=== PATIENT | male | born 1960 | race Caucasian/White ===

== ENCOUNTER 2017-03-24 11:43 | Emergency (ER) | payer SELFPAY ==
[~2017-03-24] VITALS: Ht 180.3 cm; Wt 105.7 kg
[2017-03-24] MEDS ORDERED: NS IV 1000 ML 1,000 ML IV ONE ×2 (12:25→13:48)
[2017-03-24] MEDS ORDERED: ONDANSETRON 4 MG/2 ML (SDV) Z0FRAN IVP ONE ×2 (12:30→14:00)
[2017-03-24 12:34] LABS: BASOPHILS % (AUTO) 0 % (0-10); EOSINOPHILS # (AUTO) 0.3 10^3/uL (0.0-0.3); EOSINOPHILS % (AUTO) 3 % (0-10); HEMATOCRIT 33 % (40-54); LYMPHOCYTES # (AUTO) 1.2 X 10^3 (1.0-4.0); LYMPHOCYTES % (AUTO) 12 % (12-44); MEAN CORPUSCULAR HEMOGLOBIN 27 PG (25-34); MEAN CORPUSCULAR HGB CONC 34 G/DL (32-36); MEAN CORPUSCULAR VOLUME 80 FL (80-99); MEAN PLATELET VOLUME 8.3 FL (7.4-10.4); MONOCYTES # (AUTO) 0.8 X 10^3 (0.0-1.0); MONOCYTES % (AUTO) 7 % (0-12); NEUTROPHILS # (AUTO) 7.9 X 10^3 (1.8-7.8); NEUTROPHILS % (AUTO) 78 % (42-75); PLATELET COUNT 558 10^3/uL (130-400); RED BLOOD COUNT 4.06 10^6/uL (4.35-5.85); RED CELL DISTRIBUTION WIDTH 13.1 % (10.0-14.5); WHITE BLOOD COUNT 10.2 10^3/uL (4.3-11.0)
[2017-03-24 12:45] LABS: INR 1.1 (0.8-1.4); PROTHROMBIN TIME PATIENT 14.3 SEC (12.2-14.7)
[2017-03-24 12:53] LABS: ALANINE AMINOTRANSFERASE 18 U/L (0-55); ALBUMIN 3.6 GM/DL (3.2-4.5); ALKALINE PHOSPHATASE 67 U/L (40-136); BILIRUBIN,TOTAL 0.5 MG/DL (0.1-1.0); BUN/CREATININE RATIO 14; CALCIUM 9.2 MG/DL (8.5-10.1); CARBON DIOXIDE 22 MMOL/L (21-32); CHLORIDE 91 MMOL/L (98-107); CREATININE SERUM 1.04 MG/DL (0.60-1.30); GFR ESTIMATED > 60; GLUCOSE 161 MG/DL (70-105); LIPASE 8 U/L (8-78); MAGNESIUM 1.7 MG/DL (1.8-2.4); POTASSIUM 4.3 MMOL/L (3.6-5.0); SODIUM 132 MMOL/L (135-145); TOTAL PROTEIN 7.5 GM/DL (6.4-8.2)
[2017-03-24 12:57] LABS: BILIRUBIN,URINE NEGATIVE (NEGATIVE); CLARITY,URINE CLEAR; COLOR,URINE YELLOW; GLUCOSE, URINE (UA) 4+ (NEGATIVE); KETONES,URINE 4+ (NEGATIVE); LEUKOCYTE ESTERASE ,URINE NEGATIVE (NEGATIVE); NITRITE,URINE NEGATIVE (NEGATIVE); PH,URINE 5 (5-9); PROTEIN,URINE NEGATIVE (NEGATIVE); UROBILINOGEN,URINE NORMAL (NORMAL)
[2017-03-24 13:05] LABS: BACTERIA,URINE NEGATIVE /HPF; SQUAMOUS EPITHELIAL CELL,UR RARE /HPF
[2017-03-24 13:15] LABS: TSH (THYROID ANALYZER) 6.96 UIU/ML (0.35-4.94)
[2017-03-24] MEDS ORDERED: morphine INJ 10 MG/ML 1ML (SYR OR VIAL) IVP STA (13:35)
--- NOTE | 2017-03-24 13:36 | ED GI ---
General Chief Complaint: Abdominal/GI Problems Stated Complaint: VOMITING AFTER OPEN HEART SURGERY Nursing Triage Note: C/O NAUSEA SINCE YESTERDAY W/VOMITTING THIS AM. HAD CABG @ WEEK AGO. STATED CONCERN WAS FOR DEHYDRATION. STATES GENERALIZED PAIN. NO C/O CP. 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 PT. ALSO HAS CONCERNED TO SURGERY SITE UNDER L-KNEE. Sepsis Screen: No Definite Risk Source of Information: Patient, Spouse Exam Limitations: No Limitations History of Present Illness Date Seen by Provider: Mar 24, 2017 Allergies and Home Medications Allergies Coded Allergies: No Known Drug Allergies (Unverified , 03/24/17) Past Hnqetpf-Wiciyq-Bourqe Hx Patient Social History Alcohol Use: Denies Use Recreational Drug Use: No Smoking Status: Never a Smoker Recent Foreign Travel: No Contact w/Someone Who Travel: No Recent Infectious Disease Expo: No Recent Hopitalizations: Yes (VIA [facility] FOR CABG 03.08.17) Physical Abuse: No Sexual Abuse: No Immunizations Up To Date Date of Influenza Vaccine: Mar 08, 2017 Surgeries History of Surgeries: Yes (97' CRANIOTOMY, 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)) Respiratory History of Respiratory Disorde: No Cardiovascular History of Cardiac Disorders: Yes (CABG 02/2017) Cardiac Disorders: Angina Neurological Neurological Disorders: Headaches /Migraines Genitourinary History of Genitourinary Disor: No Gastrointestinal History of Gastrointestinal Di: Yes (TAKES OMEPRAZOLE PRN) Endocrine History of Endocrine Disorders: Yes Endocrine Disorders: Diabetes, Non-Insulin dep HEENT History of HEENT Disorders: Yes (FROM CRANIOTY, 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) Psychosocial History of Psychiatric Problem: No Suicide Risk Score: 0 Blood Transfusions History of Blood Disorders: No Physical Exam Vital Signs VS - Last 72 Hours, by Label 03/24/17 12:27 Temp 95.6 Pulse 75 Resp 18 B/P (MAP) 131/81 (98) Pulse Ox 95 O2 Delivery Room Air Capillary Refill : Less Than 3 Seconds Progress/Results/Core Measures Results/Orders Lab Results Laboratory Tests Test 03/24/17 12:27 03/24/17 12:42 Range/Units White Blood Count 10.2 4.3-11.0 10^3/uL Red Blood Count 4.06 L 4.35-5.85 10^6/uL Hemoglobin 11.0 L 13.3-17.7 G/DL Hematocrit 33 L 40-54 % Mean Corpuscular Volume 80 80-99 FL Mean Corpuscular Hemoglobin 27 25-34 PG Mean Corpuscular Hemoglobin Concent 34 32-36 G/DL Red Cell Distribution Width 13.1 10.0-14.5 % Platelet Count 558 H 130-400 10^3/uL Mean Platelet Volume 8.3 7.4-10.4 FL Neutrophils (%) (Auto) 78 H 42-75 % Lymphocytes (%) (Auto) 12 12-44 % Monocytes (%) (Auto) 7 0-12 % Eosinophils (%) (Auto) 3 0-10 % Basophils (%) (Auto) 0 0-10 % Neutrophils # (Auto) 7.9 H 1.8-7.8 X 10^3 Lymphocytes # (Auto) 1.2 1.0-4.0 X 10^3 Monocytes # (Auto) 0.8 0.0-1.0 X 10^3 Eosinophils # (Auto) 0.3 0.0-0.3 10^3/uL Basophils # (Auto) 0.0 0.0-0.1 10^3/uL Prothrombin Time 14.3 12.2-14.7 SEC INR Comment 1.1 0.8-1.4 Activated Partial Thromboplast Time 33 24-35 SEC Sodium Level 132 L 135-145 MMOL/L Potassium Level 4.3 3.6-5.0 MMOL/L Chloride Level 91 L 98-107 MMOL/L Carbon Dioxide Level 22 21-32 MMOL/L Anion Gap 19 H 5-14 MMOL/L Blood Urea Nitrogen 15 7-18 MG/DL Creatinine 1.04 0.60-1.30 MG/DL Estimat Glomerular Filtration Rate > 60 BUN/Creatinine Ratio 14 Glucose Level 161 H 70-105 MG/DL Calcium Level 9.2 8.5-10.1 MG/DL Magnesium Level 1.7 L 1.8-2.4 MG/DL Total Bilirubin 0.5 0.1-1.0 MG/DL Aspartate Amino Transf (AST/SGOT) 19 5-34 U/L Alanine Aminotransferase (ALT/SGPT) 18 0-55 U/L Alkaline Phosphatase 67 40-136 U/L Troponin I < 0.30 <0.30 NG/ML C-Reactive Protein High Sensitivity 9.24 H 0.00-0.50 MG/DL Total Protein 7.5 6.4-8.2 GM/DL Albumin 3.6 3.2-4.5 GM/DL Lipase 8 8-78 U/L Free Thyroxine 1.01 0.70-1.48 NG/DL TSH [place] Testing 6.96 H 0.35-4.94 UIU/ML Urine Color YELLOW Urine Clarity CLEAR Urine pH 5 5-9 Urine Specific Hatch 1.010 L 1.016-1.022 Urine Protein NEGATIVE NEGATIVE Urine Glucose (UA) 4+ H NEGATIVE Urine Ketones 4+ H NEGATIVE Urine Nitrite NEGATIVE NEGATIVE Urine Bilirubin NEGATIVE NEGATIVE Urine Urobilinogen NORMAL NORMAL MG/DL Urine Leukocyte Esterase NEGATIVE NEGATIVE Urine RBC (Auto) NEGATIVE NEGATIVE Urine RBC NONE /HPF Urine WBC NONE /HPF Urine Squamous Epithelial Cells RARE /HPF Urine Crystals NONE /LPF Urine Bacteria NEGATIVE /HPF Urine Casts NONE /LPF Urine Mucus NEGATIVE /LPF Urine Culture Indicated NO Micro Results Microbiology 03/24/17 Influenza Types A,B Antigen ([facility]) - Final, Complete My Orders Orders - JAXON TAVERAS Saline Lock/Iv-Start (03/24/17 12:20) Ekg Tracing (03/24/17 12:20) Monitor-Rhythm Ecg Trace Only (03/24/17 12:20) Cbc With Automated Diff (03/24/17 12:20) Comprehensive Metabolic Panel (03/24/17 12:20) Hs C Reactive Protein (03/24/17 12:20) Lipase (03/24/17 12:20) Magnesium (03/24/17 12:20) Protime With Inr (03/24/17 12:20) Partial Thromboplastin Time (03/24/17 12:20) Thyroid Analyzer (03/24/17 12:20) Troponin I (03/24/17 12:20) Ua Culture If Indicated (03/24/17 12:20) Chest Pa/Lat (2 View) (03/24/17 12:20) Ondansetron Injection (Zofran Injectio (03/24/17 12:30) Ns Iv 1000 Ml (Sodium Chloride 0.9%) (03/24/17 12:25) Influenza A And B Antigens (03/24/17 13:11) Free T4 (Free Thyroxine) (03/24/17 12:27) Morphine Injection (Morphine Injection (03/24/17 13:35) Ondansetron Injection (Zofran Injectio (03/24/17 14:00) Ns Iv 1000 Ml (Sodium Chloride 0.9%) (03/24/17 13:48) Medications Given in ED Current Medications Medications Dose Ordered Sig/Kristen Route Start Time Stop Time Status Last Admin Dose Admin Ondansetron HCl 4 mg ONCE ONCE IVP 03/24/17 14:00 03/24/17 14:01 DC 03/24/17 13:50 4 MG Ondansetron HCl 8 mg ONCE ONCE IVP 03/24/17 12:30 03/24/17 12:31 DC 03/24/17 12:43 8 MG Sodium Chloride 1,000 ml @ 0 mls/hr Q0M ONCE IV 03/24/17 12:25 03/24/17 12:27 DC 03/24/17 12:43 0 MLS/HR Sodium Chloride 1,000 ml @ 0 mls/hr Q0M ONCE IV 03/24/17 13:48 03/24/17 13:50 DC 03/24/17 13:50 1,000 MLS/HR Vital Signs/I&O Vital Sign - Last 12Hours 03/24/17 12:27 Temp 95.6 Pulse 75 Resp 18 B/P (MAP) 131/81 (98) Pulse Ox 95 O2 Delivery Room Air Blood Pressure Mean: 98 Departure Impression Impression: Primary Impression: Nausea and vomiting Qualified Codes: R11.2 - Nausea with vomiting, unspecified Additional Impressions: Volume depletion Status post coronary artery bypass graft Disposition: HOME, SELF-CARE Condition: Improved Departure-Patient Inst. Decision time for Depature: 15:06 Referrals: NO,LOCAL PHYSICIAN (PCP/Family) Primary Care Physician Patient Instructions: Coronary Artery Bypass Grafting (DC), Viral Gastroenteritis, Adult (DC) Add. Discharge Instructions: All discharge instructions reviewed with patient and/or family. Voiced understanding. Medications as instructed. Drink plenty of fluids. Continue medications, diet, and instructions per your cardiothoracic surgeon. Follow-up with your surgeon next week for recheck, call for appointment time Monday. Follow-up with her family practitioner for recheck as an outpatient. Return to the emergency department immediately for worsened vomiting, pain, fever, shortness of air, chest pain, vomiting blood, redness at the incision sites, drainage from the incision sites, difficulty with urination, abdominal pain, dizziness, headache, changes in behavior, or any other concerns. Scripts Prochlorperazine Maleate (Compazine) 25 Mg Supp.rect 25 MG RC Q6H Y for NAUSEA/VOMITING-2ND LINE, #10 SUPP.RECT 0 Refills Prov: JAXON TAVERAS 03/24/17 Ondansetron (Ondansetron Odt) 8 Mg Tab.rapdis 8 MG PO Q6H Y for NAUSEA/VOMITING-1ST LINE, #10 TAB 0 Refills Prov: JAXON TAVERAS 03/24/17 Work/School Note: Local [employer] Listing JAXON TAVERAS Mar 24, 2017 13:36
[2017-03-24 13:47] LABS: FREE T4 (FREE THYROXINE) 1.01 NG/DL (0.70-1.48)
--- NOTE | 2017-03-24 14:05 | Diagnostic Imaging Report ---
Indication: Vomiting. Previous open heart surgery. Comparison: 03/08/2017. Procedure: PA and lateral chest Findings: Median sternotomy changes now present. Heart is mildly enlarged. There is no pulmonary edema. The lungs are well-aerated. There are no infiltrates. No pneumothorax or pleural effusion. Impression: Postoperative changes with no acute abnormalities otherwise demonstrated. Dictated by: Dictated on workstation # [id number]
[2017-03-24] MEDS ORDERED: PROC25SU27 RC (15:08)
[2017-03-24] MEDS ORDERED: ONDA8TAB13 PO (15:08)
[2017-03-24 15:41] VITALS: BP 122/72
--- OUTSIDE RECORDS SUMMARY | 2017-03-26 08:18 | XMS REPORT | Continuity of Care Document ---
Author Author [facility] Organization [facility] Address Unknown Phone Unavailable Allergies Active Description Code Type Severity Reaction Onset Reported/Identified Relationship to Patient Clinical Status Yes NO KNOWN ALLERGIES [id number] DRUG N/A N/A Medications There is no data. Problems Date Dx Coded Attending Type Code Diagnosis Diagnosed By 03/08/2017 MISAEL ROCK V2 804054 Chest Pain 03/08/2017 MISAEL ROCK V2 145206 Chest Pain 03/08/2017 MISAEL ROCK V2 [id number] Chest Pain 03/08/2017 MISAEL ROCK V1 I21.4 Non-ST elevation (NSTEMI) myocardial infarction ([facility]) 03/08/2017 MISAEL ROCK V1 I21.4 Non-ST elevation (NSTEMI) myocardial infarction ([facility]) 03/08/2017 MISAEL ROCK V1 I21.4 Non-ST elevation (NSTEMI) myocardial infarction ([facility]) Procedures There is no data. Results Test Result Range CBC WITH DIFFERENTIAL REFLEX MANUAL DIFF - 03/08/17 11:02 Hemoglobin 14.5 g/dL 13.9-17.4 Hematocrit 41.9 % 40.6-50.3 RDW Red Cell Distr Width 12.9 % 11.7-14.6 Lymphocytes Absolute 2.6 10*3/uL 1.1-3.5 Monocytes Absolute 0.5 10*3/uL 0.3-0.9 Eosinophils Absolute 0.1 10*3/uL 0.0-0.6 Basophils Absolute 0.0 10*3/uL 0.0-0.1 Neutrophils % 63 % Lymphocytes % 30 % Monocytes % 6 % Eosinophils % 2 % Basophils % 0 % Neutrophils Absolute 5.36 10*3/uL 1.70-6.40 MCH Mean Cell Hemoglobin 27.5 pg 26.7-34.1 MCHC Mean Cell Hgb Conc 34.6 g/dL 31.0-36.1 MCV Mean Cell Volume 79 fL 81-99 MPV Mean Platelet Volume 9.9 fL Platelet Count 245 10*3/uL 150-400 RBC Red Blood Count 5.28 10*6/uL 4.40-5.89 WBC White Blood Count 8.6 10*3/uL 4.0-9.6 COMPREHENSIVE METABOLIC PANEL - 03/08/17 11:02 BUN:Creatinine Ratio 14 6-25 Globulin 3.6 g/dL 2.2-4.2 Anion Gap 15 6-18 Alkaline Phosphatase 95 U/L 20-125 ALT Alanine Aminotransferase 34 U/L 12-78 AST Aspartate Amino Transferase 20 U/L 7-37 BUN Urea Nitrogen 16 mg/dL 6-24 CO2 Carbon Dioxide 23 mmol/L 20-30 Creatinine 1.17 mg/dL 0.65-1.36 Protein Total 7.4 g/dL 6.4-8.2 Bilirubin Total 0.5 mg/dL 0.2-1.2 Potassium 4.3 mmol/L 3.5-5.1 Sodium 131 mmol/L 136-145 Chloride 97 mmol/L 96-111 Glucose 382 mg/dL 70-99 Calcium 8.9 mg/dL 8.3-10.1 GFR Glomerular Filtration Rate 69.8 mL/min/1.73m*2 >60.0 Albumin 3.8 g/dL 3.4-5.3 Albumin:Globulin Ratio 1.1 0.8-2.0 PROTIME INR - 03/08/17 11:02 INR International Ratio 0.9 0.9-1.1 PT Prothrombin Time 9.3 seconds 9.3-11.7 Encounters ACCT No. Visit Date/Time Discharge Status Pt. Type Provider Facility Loc./Unit Complaint [id number] 03/08/2017 10:43:00 03/08/2017 13:10:00 DIS Emergency MISAEL ROCK [facility]
== END 2017-03-24 15:41 | disposition home or self-care (01) ==
LOC: EDUNIT# 11:43 → ER 11:46
DX: E86.9 Volume depletion, unspecified (principal); E11.9 Type 2 diabetes mellitus without complications; G43.909 Migraine, unspecified, not intractable, without status migrainosus; R11.2 Nausea with vomiting, unspecified; Z98.890 Other specified postprocedural states; Z87.898 Personal history of other specified conditions; Z95.1 Presence of aortocoronary bypass graft
CPT/HCPCS: 36415; 71046; 80053; 81000; 83690; 83735; 84439; 84443; 84484; 85025; 85610; 85730; 86141; 87804; 93005; 93041; 96374; 96375; 96376